=== PATIENT | female | born 1960 | race Asian ===

== ENCOUNTER 2019-11-17 20:50 | Emergency (ER) | payer OTHER ==
[2019-11-17] MEDS ORDERED: Amoxicillin/Clavulanate TAB* 875 MG PO ONE (21:28)
--- NOTE | 2019-11-17 21:28 | UC ---
[facility] HPI HPI Summary: 59-year-old woman has a chief complaint of being ill for 2 weeks. She's had a runny nose sinus congestion she has chest congestion has been feeling very fatigued. She is on methotrexate and hydroxychloroquine so she is potentially immunocompromised. She have a fever for couple of days and the beginning of the illness. Overall she's not improving. She would like to get tested for Covid. Telehealth PMH Previously Healthy: Yes - rheumatoid arthritis Endocrine/Hematology History: Denies: Hx Diabetes, Hx Thyroid Disease Cardiovascular History: Denies: Hx Hypertension Respiratory History: Denies: Hx Asthma, Hx Chronic Obstructive Pulmonary Disease (COPD) GI History: Denies: Hx Ulcer - Cancer History Hx Chemotherapy: No Hx Radiation Therapy: No - Family History Known Family History: Positive: Non-Contributory - Social History Substance Use Type: Reports: Prescribed [facility] ROS All Other Systems Reviewed And Are Negative: Yes Positive: Fever Positive: Nasal Discharge Positive: Cough Positive: Myalgia [facility] PE Telehealth Physical Exam: The physical exam and interview was undertaken by visual telemedicine. This limits the physical examination. [facility] Course/Dx Provider Diagnoses: Sinusitis [facility] Disposition Provider Recommendation for Treatment: Primary Care Physician Telehealth Visit: Patient Consented Verbally to Telehealth Visit Telehealth Patient Statement: The patient should understand that they are communicating with their provider via a secure communication platform and that all the same privacy and confidentiality rules apply. They will also be responsible for copayments or coinsurances that apply to any Telehealth visit. Patient Identifiers: 2 Patient Identifiers Verified for Telehealth Visit Telehealth Visit Start Time: 21:25 Telehealth Visit End Time: 21:45 Telehealth Provider Attestation: The above services were appropriate to provide in a Telehealth setting.
--- OUTSIDE RECORDS SUMMARY | 2019-11-17 21:37 | XMS REPORT | Summary of Care ---
:1960 Author Organization [facility] Address [address] [address] Care Team Providers Name Role Phone Mine Odell MD Primary Care Provider Reason for Visit Reason Comments Medication Check pt would like to discuss sleep and anxiety medications Encounter Details Date Type Department Care Team Description 10/21/2019 Office Visit [facility] Sanjiv Odell (Primary Dx); Practice Mine Dao MD Insomnia, unspecified type; [address] [facility] Seropositive rheumatoid arthritis (HCC); [place] [address] Memory changes [phone] Allergies Active Allergy Reactions Severity Noted Date Comments Bee Sting Anaphylaxis 01/12/2017 documented as of this encounter (statuses as of 10/21/2019) Medications Medication Sig Dispensed Refills Start End Status Date Date Melatonin 3 MG Oral Take 0.5 mg by 0 Active TabIndications: mouth. Indications: Insomnia Trouble Sleeping Diclofenac Sodium 1 % Place 1 Act onto 300 g 6 Active Transdermal skin FOUR TIMES 017 GelIndications: DAILY NEEDED Rheumatoid arthritis, (pain). Bilat. involving unspecified shoulders site, unspecified rheumatoid factor presence (HCC) Elastic Bandages & 1 Package by Does 2 Each 1 Active Supports (MEDICAL not apply route 017 COMPRESSION NEEDED (leg pain - PANTYHOSE) Does not varicose veins). apply MiscIndications: Varicose veins of both lower extremities with pain fluocinonide (LIDEX) Apply twice daily 15 g 0 03/19/2 Active 0.05 % Apply to rash on right 018 externally ankle for up to two OintmentIndications: weeks Dermatitis Prasterone (INTRAROSA Place into the 0 Active [facility]) vagina. Omeprazole delayed take 1 capsule by 90 Cap 1 Active rel cap 20 MG Oral mouth once daily 019 CAPSULE DELAYED BEFORE DINNER if RELEASE needed paroxetine (PAXIL) 10 Take 1 Tab by mouth 90 Tab 3 Active MG Oral DAILY. 019 TabIndications: ESTEPHANIE (generalized anxiety disorder) valacyclovir Take 1 Tab by mouth 14 Tab 3 Active (VALTREX) 500 MG Oral TWO TIMES DAILY 019 Tab NEEDED (cold sore). leucovorin Take 2 Tabs by 180 Tab 3 Active (WELLCOVORIN) 5 MG mouth DAILY. Daily 019 Oral Tab except the day that you take methotrexate EPINEPHrine 0.3 0.3 mg by Injection 1 Each 0 Active MG/0.3ML Injection route ONCE 019 Solution NEEDED (anaph) for Auto-injectorIndicati up to 1 dose. ons: Anaphylaxis Indications: Life-Threatening Hypersensitivity Reaction Tretinoin 0.05 % 0.2 g by Apply 20 g 0 Active Apply externally externally route 019 CreamIndications: EVERY BEDTIME. To Lentigines, Acne affected areas on vulgaris the face hydroxychloroquine Take 1 Tab by mouth 180 Tab 1 Active (PLAQUENIL) 200 MG DAILY. 019 Oral Tab atorvastatin take 1 tablet by 90 Tab 3 Active (LIPITOR) 10 MG Oral mouth once daily 019 TabIndications: Mixed hyperlipidemia ibuprofen (MOTRIN) TAKE 1 TABLET BY 100 Tab 0 Active 800 MG Oral Tab MOUTH WITH FOOD 019 EVERY 6 HOURS IF NEEDED Insulin 1 Syringe by Does 100 Each 0 Active Syringe-Needle U-100 not apply route 019 (ADVOCATE INSULIN EVERY 7 DAYS. SYRINGE) 31G X 5/16" 1 ML Does not apply Misc predniSONE Take 4 Tabs by 300 Tab 1 Active (DELTASONE) 5 MG Oral mouth DIRECTED. 019 Tab Take prednisone 20 mg reduce by 5 mg every 2 weeks cholecalciferol Take 1,000 Units by 0 Active (VITAMIN D) 1000 UNIT mouth DAILY. Oral Tab hydrocortisone Place 1 Appl per 1 Tube 0 Active (ANUSOL-HC,PROCTOSOL- rectum EVERY 019 HC) 2.5 % Rectal BEDTIME. Cream methotrexate sodium, ADMINISTER 1 ML 24 mL 0 Active PF, (MTX) 50 MG/2ML UNDER THE SKIN 020 Injection Solution EVERY 7 DAYS zolpidem (AMBIEN) 5 Take 1 Tab by mouth 30 Tab 5 Active MG Oral EVERY BEDTIME 020 TabIndications: NEEDED (sleep Insomnia, unspecified disturbance). Max type Daily Amount: 5 mg. mirtazapine (REMERON) Take 1 Tab by mouth 30 Tab 5 Active 7.5 MG Oral EVERY BEDTIME. 020 TabIndications: Insomnia, unspecified type, Anxiety trazodone (DESYREL) Take 1 Tab by mouth 90 Tab 0 10/21/ Discontinued 50 MG Oral EVERY BEDTIME. 019 2019 (Side Effect) TabIndications: Insomnia, unspecified type zolpidem (AMBIEN) 5 Take 1 Tab by mouth 30 Tab 1 10/21/ Discontinued MG Oral EVERY BEDTIME 019 2019 (Reorder) TabIndications: NEEDED (sleep Insomnia, unspecified disturbance). Max type Daily Amount: 5 mg. documented as of this encounter (statuses as of 10/21/2019) Active Problems Problem Noted Date Primary osteoarthritis involving multiple joints 04/15/2019 Insomnia 01/16/2019 Varicose veins of both lower extremities 01/16/2019 Mixed hyperlipidemia 01/16/2019 Seropositive rheumatoid arthritis 06/25/2017 Raynaud's disease without gangrene 06/25/2017 Neuropathy, peripheral, idiopathic 05/18/2017 Osteopenia 01/15/2017 Overview: DEXA 2016 Anxiety Overview: on paxil since depression documented as of this encounter (statuses as of 10/21/2019) Immunizations Name Administration Dates Next Due Hepatitis B Vaccine Adult 09/26/2011, 02/09/2011, 01/04/2011 Influenza (IM) Preservative Free 04/03/2019, 05/17/2018, 05/17/2018, 03/31/2017, 04/14/2016, 03/27/2015 PNEUMOCOCCAL POLYSACCHARIDE VACCINE 02/01/2014 TDAP Vaccine 11/18/2016, 09/18/2007 ZOSTER (ZOSTAVAX) VACCINE 08/05/2012 documented as of this encounter Social History Tobacco Use Types Packs/Day Years Used Date Never Smoker Smokeless Tobacco: Never Used Alcohol Use Drinks/Week oz/Week Comments Yes 1 Glasses of wine 2.0 1 Cans of beer Sex Assigned at Date Recorded Not on file documented as of this encounter Last Filed Vital Signs Vital Sign Reading Time Taken Comments Blood Pressure 110/70 10/21/2019 1:52 PM EST Pulse 66 10/21/2019 1:52 PM EST Temperature 36.2 10/21/2019 1:52 PM EST C (97.2 F) Respiratory Rate - - Oxygen Saturation 98% 10/21/2019 1:52 PM EST Inhaled Oxygen Concentration - - Weight 50.3 kg (111 lb) 10/21/2019 1:52 PM EST Height 162.6 cm (5' 4") 10/21/2019 1:52 PM EST Body Mass Index 19.05 10/21/2019 1:52 PM EST documented in this encounter Patient Instructions Patient InstructionsMine Odell MD - 10/21/2019 1:40 PM ESTStop trazodone Try Mirtazapine at bedtime 7.5 mg at bedtime. We can taper this up. In time, if this works, we can consider tapering Paxil. Ambien refilled. Warning not to drive or work within 8 hours discussed. Follow up in 3 monthsElectronically signed by Mine Odell MD at 2:25 PM EST documented in this encounter Progress Notes Mine Odell MD - 10/21/2019 1:40 PM EST Nursing Notes: Neisha Garcia LPN 10/21/2019 1:58 PM Signed Chief Complaint Patient presents with ? Medication Check pt would like to discuss sleep and anxiety medications This report was requested by: Neisha Garcia | Reference #: [id number] Mine Odell's Prescriptions Patient Name: Destin Hector Date: 1960 Address: [address] [place] [address] Sex: Female Rx Written Rx Dispensed Drug Quantity Days Supply Prescriber Name Payment Method Dispenser 05/28/2019 05/28/2019 alprazolam 0.25 mg tablet 5 5 Mine Odell MD Insurance [id number] 01/16/2019 05/16/2019 zolpidem tartrate 5 mg tablet 30 30 CannmarivelMine burrell MD Insurance [facility] 01/16/2019 04/16/2019 zolpidem tartrate 5 mg tablet 30 30 CannariaMine burrell MD Insurance [facility] 01/16/2019 03/17/2019 zolpidem tartrate 5 mg tablet 30 30 LinkariaMine burrell MD Insurance [facility] 01/16/2019 02/15/2019 zolpidem tartrate 5 mg tablet 30 30 CannariaindraMine MD Insurance [facility] 01/16/2019 01/16/2019 zolpidem tartrate 5 mg tablet 30 30 CannariaMien burrell MD Insurance [facility] Others' Prescriptions Patient Name: Destin Hector Date: 1960 Address: [address] [place] [address] Sex: Female Rx Written Rx Dispensed Drug Quantity Days Supply Prescriber Name Payment Method Dispenser 08/08/2019 09/09/2019 zolpidem tartrate 5 mg tablet 30 30 Sy, Layne Insurance [facility] #[id number] 08/08/2019 08/08/2019 zolpidem tartrate 5 mg tablet 30 30 Sy, Layne Insurance [id number] 11/26/2018 11/26/2018 zolpidem tartrate 5 mg tablet 30 30 Sy, Layne Snow Insurance [id number] * - Drugs marked with an asterisk are compound drugs. If the compound drug is made up of more than one controlled substance, then each controlled substance will be a separate row in the table. Professor Of Spanish: Dr Olivares Cell Plasterer: Dr Redding Neurologist: Dr Martínez. Chief Complaint: Destin Hector is a 59-y.o. female who presents for insomnia History of Present Illness/ROS: Patient presents for insomnia follow up, needs med refill. Despite Ambien, she is having problems sleeping and has anxiety. Geraldine Gutierrez [facility] gave her Trazodone 05/16/2019. It gives her odd dreams. Uses it on and off. In past tried Remeron--?hangover effect. She cannot sleep without Ambien. She is on paxil also. Since last visit she has seen Dr Martínez of neurology 09/02/2019 for her memory concerns. 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 He ordered Nuclear medicine brain PET imaging to rule out a neurodegenerative disease such as Alzheimer's. She tells me insurance denied this. She saw Dr Olivares, rheumatology for a follow up seropositive rheumatoid arthritis with osteoarthritis. Currently on Plaquenil 200 mg once day and methotrexate?subcutaneous 25?mg weekly with folinic acid 5 mg daily but not the day that she takes methotrexate. Review of Systems - General ROS: negative for - chills or fever Respiratory ROS: negative for - cough or shortness of breath Cardiovascular ROS: negative for - chest pain Neurological ROS: negative for - tremors, weakness, but has short term memory problems. At work sheis focused and fine. It is home that is a problem for her. GI Procedure on 07/15/2019 Component Date Value Ref Range Status ? GI Procedure 07/15/2019 Final Value:[facility] Patient Name: Destin Hector Procedure Date: 07/15/2019 7:52 AM Date of : 1960 Admit Type: Outpatient Age: 59 Room: A1 Gender: Female Note Status: Finalized Attending MD: AIDE ZAPIEN MD Procedure: Colonoscopy Indications: Screening for colorectal malignant neoplasm, Incidental - Diarrhea Providers: AIDE ZAPIEN MD, Kathya Rios RN, Maday Dixon (Meat [employer]er [employer] Slicer) Referring MD: MINE ODELL MD (Referring MD) Complications: No immediate complications. Medicines: Midazolam 5 mg IV Procedure: The patient's current medications and allergies were reviewed and recorded in the nurses notes. The patient was made aware of the risk of the procedure which can include: bleeding, infection, perforation, an adverse reaction to sedation, and a risk of missed lesions, among others. The patient appeared to understand. An opportunity for questions was provided, and an informed consent form was signed. The scope was passed under direct vision. Throughout the procedure, the patient's blood pressure, pulse EKG, and oxygen saturations were monitored continuously. The Colonoscope was introduced through the anus and advanced to the terminal ileum, with identificat ion of the appendiceal orifice and IC valve. The colonoscopy was performed without difficulty. The patient tolerated the procedure well. The quality of the bowel preparation was excellent. Requesting Provider: Findings: The perianal and digital rectal examinations were normal. The terminal ileum appeared normal. Internal hemorrhoids were found during retroflexion. The hemorrhoids were Grade I (internal hemorrhoids that do not prolapse). There is no endoscopic evidence of inflammation in the entire colon. Biopsies for histology were taken with a cold forceps from the entire colon for evaluation of microscopic colitis. Verification of patient identification for the specimen was done by the physician and nurse using the patient's name and medical record number. Estimated blood los s was minimal. Moderate Sedation: Moderate (conscious) sedation was administered by the endoscopy nurse and supervised by the endoscopist. The following parameters were monitored: oxygen saturation, heart rate, blood pressure, and response to care. Total physician intraservice time was 12 minutes. Impression: - The examined portion of the ileum was normal. - Internal hemorrhoids. Recommendation: - Discharge patient to home. - Resume previous diet. - Continue present medications. - Await pathology results. - Repeat colonoscopy in 10 years for screening purposes. Procedure Code(s): --- Professional --- 13936, Colonoscopy, flexible; with biopsy, s elvie or multiple G0500, Moderate sedation services provided by the same physician or other qualified health geriatric care manager performing a gastrointestinal endoscopic service that sedation supports, requiring the presence of an independent trained observer to assist in the monitoring of the patient's level of consciousness and physiological status; initial 15 minutes of intra-service time; patient age 5 years or older (additional time may be reported with 50959, as appropriate) Diagnosis Code(s): --- Professional --- Z12.11, Encounter for screening for malignant neoplasm of colon K64.0, First degree hemorrhoids CPT copyright 2017 [employer] [place] [employer]. All ri ghts reserved. The codes documented in this report are preliminary and upon bolt sawyer review may be revised to meet current compliance requirements. AIDE ZAPIEN MD 07/15/2019 8:57:53 AM This report has been signed electronically. Number of Addenda: 0 Note Initiated On: 07/15/2019 7:52 AM Estimated Blood Loss: Estimated blood loss: none. ? Case Report 07/15/2019 Final Value:Surgical Pathology Case: [id number] Authorizing Provider: Aide Zapien MD Collected: 2018 09:05 AM Ordering Location: [place] Received: 2018 11:41 AM Gastroenterology/Hepatolog y Pathologist: Placido Marshall, DO Specimen: colon biopsy, Random colon biopsies/colon/colonoscopy ? Clinical Information 07/15/2019 Final Value:hx diarrhea r/o microscopic colitis ? Pre-Op Diagnosis 07/15/2019 Final Value:Colon cancer screening ? Post-Op Diagnosis 07/15/2019 Final Value:Colon cancer screening ? FINAL DIAGNOSIS 07/15/2019 Final Value:This result contains rich text formatting which cannot be displayed here. ? Microscopic Description 07/15/2019 Final Value:This result contains rich text formatting which cannot be displayed here. ? Gross Description 07/15/2019 Final Value:This result contains rich text formatting which cannot be displayed here. ? Disclaimer 07/15/2019 Final Value:This result contains rich text formatting which cannot be displayed here. MR BRAIN WO CONT AND MRA BRAIN WO CONT Narrative: Procedure(s): MR BRAIN WO CONT AND MRA BRAIN WO CONT Date of service: 02/17/2019 3:35 PM Provided clinical information: 58 years, Female, "Headache, acute, norm neuro exam: with brain fog, hit her head October 2018" Technique A multiplanar, multisequence non-contrast MRI of the brain was performed. A dedicated intracranial MRA was performed using 3-D [id number] technique centered over the [place]. [id number] sequences of the [place] were acquired and reviewed Findings: MRI of the brain: The ventricles and sulci are within normal limits. There are scattered foci of signal abnormality in a bifrontal distribution suggestive of sequelae of prior headaches/migraines or early chronic small vessel ischemic disease. The valerio-white differentiation is maintained. There are no extra-axial or intra-axial fluid collections. There is no intracranial hemorrhage. The globes and intraorbital contents are within normal limits. There is no retrobulbar inflammation. The paranasal sinuses and mastoid air cells are clear. The major flow voids are patent. There is no restricted diffusion to suggest an acute infarct. There is no gradient echo susceptibility representing hemosiderin deposition. MRA of the brain: The lower cervical, petrous, supraclinoidal, and cavernous segments of the internal carotid arteries are intact without evidence of significant stenosis, aneurysm or vascular malformation. The right vertebral artery terminates into the right posterior inferior cerebellar artery. This represents a normal congenital variant. The anterior and posterior circulations are intact without MR findings of significant stenosis, aneurysm or vascular malformation. Impression: No significant stenosis, aneurysm or vascular malformation. No acute infarct. There are scattered foci of signal abnormality in a bifrontal distribution suggestive of sequelae of prior headaches/migraines or early chronic small vessel ischemic disease. Signed by Sandoval Jolley MD on 02/18/2019 2:31 AM Past Medical History: Diagnosis Date ? Anxiety on paxil since depression ? Basal cell carcinoma right posterior wrist 03-27-17 re-excised 06-13-17 ? Dermatitis ? GERD (gastroesophageal reflux disease) ? Hemorrhoid treated at [facility], ligated ? Hypercholesterolemia ? Insomnia ? Neuropathy, peripheral, idiopathic 05/18/2017 ? Osteopenia 01/11/2016 osteopenia, T-Score -1.1 and -1.4 femur, -.8 spine ? Postmenopausal ? Rotator cuff (capsule) sprain Past Surgical History: Procedure Laterality Date ? SECTION NEC ? COLONOSCOPY 2014 ? ENDOMETRIAL BIOPSY 02/2017 negative ? MO HEMORRHOIDECTOMY INTERNAL RUBBER BAND LIGATIONS Current Outpatient Medications: ? atorvastatin (LIPITOR) 10 MG Oral Tab, take 1 tablet by mouth once daily, Disp: 90 Tab, Rfl: 3 ? cholecalciferol (VITAMIN D) 1000 UNIT Oral Tab, Take 1,000 Units by mouth DAILY., Disp: , Rfl: ? Diclofenac Sodium 1 % Transdermal Gel, Place 1 Act onto skin FOUR TIMES DAILY NEEDED (pain). Bilat. shoulders, Disp: 300 g, Rfl: 6 ? Elastic Bandages & Supports (MEDICAL COMPRESSION PANTYHOSE) Does not apply Misc, 1 Package by Does not apply route NEEDED (leg pain - varicose veins)., Disp: 2 Each, Rfl: 1 ? EPINEPHrine 0.3 MG/0.3ML Injection Solution Auto-injector, 0.3 mg by Injection route ONCE NEEDED (anaph) for up to 1 dose. Indications: Life- Threatening Hypersensitivity Reaction, Disp: 1 Each, Rfl: 0 ? fluocinonide (LIDEX) 0.05 % Apply externally Ointment, Apply twice daily to rash on right ankle for up to two weeks, Disp: 15 g, Rfl: 0 ? hydrocortisone (ANUSOL-HC,PROCTOSOL-HC) 2.5 % Rectal Cream, Place 1 Appl per rectum EVERY BEDTIME., Disp: 1 Tube, Rfl: 0 ? hydroxychloroquine (PLAQUENIL) 200 MG Oral Tab, Take 1 Tab by mouth DAILY., Disp: 180 Tab, Rfl: 1 ? ibuprofen (MOTRIN) 800 MG Oral Tab, TAKE 1 TABLET BY MOUTH WITH FOOD EVERY 6 HOURS IF NEEDED, Disp: 100 Tab, Rfl: 0 ? Insulin Syringe-Needle U-100 (ADVOCATE INSULIN SYRINGE) 31G X 5/16" 1 ML Does not apply Misc, 1 Syringe by Does not apply route EVERY 7 DAYS., Disp: 100 Each, Rfl: 0 ? leucovorin (WELLCOVORIN) 5 MG Oral Tab, Take 2 Tabs by mouth DAILY. Daily except the day that you take methotrexate, Disp: 180 Tab, Rfl: 3 ? Melatonin 3 MG Oral Tab, Take 0.5 mg by mouth. Indications: Trouble Sleeping, Disp: , Rfl: ? methotrexate sodium, PF, (MTX) 50 MG/2ML Injection Solution, ADMINISTER 1 ML UNDER THE SKINEVERY 7 DAYS, Disp: 24 mL, Rfl: 0 ? mirtazapine (REMERON) 7.5 MG Oral Tab, Take 1 Tab by mouth EVERY BEDTIME., Disp: 30 Tab, Rfl: 5 ? Omeprazole delayed rel cap 20 MG Oral CAPSULE DELAYED RELEASE, take 1 capsule by mouth oncedaily BEFORE DINNER if needed, Disp: 90 Cap, Rfl: 1 ? paroxetine (PAXIL) 10 MG Oral Tab, Take 1 Tab by mouth DAILY., Disp: 90 Tab, Rfl: 3 ? Prasterone (INTRAROSA VA), Place into the vagina., Disp: , Rfl: ? predniSONE (DELTASONE) 5 MG Oral Tab, Take 4 Tabs by mouth DIRECTED. Take prednisone 20 mg reduce by 5 mg every 2 weeks, Disp: 300 Tab, Rfl : 1 ? Tretinoin 0.05 % Apply externally Cream, 0.2 g by Apply externally route EVERY BEDTIME. To affected areas on the face, Disp: 20 g, Rfl: 0 ? valacyclovir (VALTREX) 500 MG Oral Tab, Take 1 Tab by mouth TWO TIMES DAILY NEEDED (coldsore)., Disp: 14 Tab, Rfl: 3 ? zolpidem (AMBIEN) 5 MG Oral Tab, Take 1 Tab by mouth EVERY BEDTIME NEEDED (sleep disturbance). Max Daily Amount: 5 mg., Disp: 30 Tab, Rfl: 5 Allergies Allergen Reactions ? Bee Sting Anaphylaxis Social History Socioeconomic History ? Marital status: Spouse name: Not on file ? Number of children: Not on file ? Years of education: Not on file ? Highest education level: Not on file Occupational History ? Not on file Social Needs ? Financial resource strain: Not on file ? Food insecurity Worry: Not on file Inability: Not on file ? Transportation needs Medical: Not on file Non-medical: Not on file Tobacco Use ? Smoking status: Never Smoker ? Smokeless tobacco: Never Used Substance and Sexual Activity ? Alcohol use: Yes Alcohol/week: 2.0 standard drinks Types: 1 Glasses of wine, 1 Cans of beer per week ? Drug use: No ? Sexual activity: Yes Partners: Male Comment: menopausal Lifestyle ? Physical activity Days per week: Not on file Minutes per session: Not on file ? Stress: Not on file Relationships ? Social connections Talks on phone: Not on file Gets together: Not on file Attends holiness service: Not on file Active member of club or organization: Not on file Attends meetings of clubs or organizations: Not on file Relationship status: Not on file ? Intimate partner violence Fear of current or ex partner: Not on file Emotionally abused: Not on file Physically abused: Not on file Forced sexual activity: Not on file Other Topics Concern ? Back Care Not Asked ? Bike Helmet Not Asked ? Blood Transfusions Not Asked ? Caffeine Concern Not Asked ? Exercise Not Asked ? Hobby Hazards Not Asked ? International Travel Not Asked ? Service Not Asked ? Occupational Exposure Not Asked ? Seat Belt Not Asked ? Self-Exams Not Asked ? Sleep Concern Not Asked ? Special Diet Not Asked ? Stress Concern Not Asked ? 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 Olivares 05/30/17. Family History Problem Relation Age of Onset ? Psychiatry Mother schizophrenia ? High Cholesterol Father ? Hypertension Father ? No Known Problems Daughter ? No Known Problems Daughter ? Thyroid Sister ? High Cholesterol Brother ? Heart Brother 56 cardiac arrest, in a coma since, tachycardia, [place] ? High Cholesterol Brother PHYSICAL EXAMINATION: BP 110/70 | Pulse 66 | Temp 97.2 F (36.2 C) | Ht 5' 4" (1.626 m) | Wt 111 lb (50.3 kg) | SpO2 98% | BMI 19.05 kg/m Physical Examination: General appearance - alert, well appearing, and in no distress Mental status - alert, oriented to person, place, and time, normal mood, behavior, speech, dress, motor activity, and thought processes Eyes - pupils equal, sclera anicteric Neck - supple, no cervical or supraclavicular adenopathy, carotids upstroke normal bilaterally, no bruits, thyroid exam: thyroid is normal in size without nodules or tenderness, no neck masses palpated. Chest/Lungs - clear to auscultation, no wheezes, rales or rhonchi, symmetric air entry, good aeration Heart - normal rate, regular rhythm, normal S1, S2, no murmurs, rubs, clicks or gallops Abdomen - soft, non tender on palpation Neurological - alert, oriented, normal speech, no Tremor, normal gait Extremities - dorsalis pedis pulses normal, no pedal edema ASSESSMENT/PLAN: ICD-9-CM ICD-10-CM 1. Anxiety 300.00 F41.9 mirtazapine (REMERON) 7.5 MG Oral Tab 2. Insomnia, unspecified type 780.52 G47.00 zolpidem (AMBIEN) 5 MG Oral Tab mirtazapine (REMERON) 7.5 MG Oral Tab 3. Seropositive rheumatoid arthritis (HCC) 714.0 M05.9 4. Memory changes 780.[address] Martínez for memory concerns. I did warn her part of the treatment is stopping medications that can effect memory: Ambien, trazodone, Paxil. She would like to stop trazodone and try mirtazapine. She can taper this up and my hope is we can eventually stop Ambien. If it works well, perhaps Paxil also. She is doubtful she can stop Ambien. Patient Instructions Stop trazodone Try Mirtazapine at bedtime 7.5 mg at bedtime. We can taper this up. In time, if this works, we can consider tapering Paxil. Ambien refilled. Warning not to drive or work within 8 hours discussed. Follow up in 3 months Author: Mine Odell MD 10/21/2019 14:25 documented in this encounter Plan of Treatment Date Type Specialty Care Team Description 12/02/2019 Office Visit Rheumatology Araceli Olivares MD [address] [address] 12/04/2019 Office Visit Neurology Rolan Martínez MD [address] [address] 01/23/2020 Office Visit Family Practice Mine Odell MD [address] [place] [address] [phone] 03/02/2020 Office Visit Dermatology Steve Yuan PA-C [address] [address] Health Maintenance Due Date Last Done Comments ZOSTER IMMUNIZATION SERIES 09/30/2012 08/05/2012 (2 of 3) INFLUENZA VACCINE (#1) 2019 05/17/2018, 03/31/2017, 04/14/2016, Additional history exists MAMMOGRAM (SCREENING) 01/11/2020 01/10/2019, 01/02/2018, 11/25/2016 (Previously completed), Additional history exists DEPRESSION SCREENING 01/17/2020 01/16/2019 OSTEOPOROSIS SCREENING 01/30/2020 01/29/2018, 01/11/2016, 01/11/2016, Additional history exists PAP SMEAR 01/15/2021 01/15/2018, 12/25/2016 (Previously completed) LIPID DISORDER SCREENING 04/21/2024 04/21/2019, 03/17/2019, 02/07/2019, Additional history exists DTaP/Tdap/Td Vaccines (3 - 11/18/2026 11/18/2016, 09/18/2007 Tdap) Colonoscopy 07/15/2029 07/15/2019, 08/27/2014 (Previously completed), 07/13/2009 PNEUMOCOCCAL 0-64 YRS Aged Out 02/01/2014 No longer eligible based on patient's age to complete this topic HEPATITIS C SCREENING Completed 05/10/2017 HEPATITIS A IMMUNIZATION Aged Out No longer eligible SERIES based on patient's age to complete this topic HPV IMMUNIZATION SERIES Aged Out No longer eligible based on patient's age to complete this topic MENINGOCOCCAL VACCINE IMM Aged Out No longer eligible based on patient's age to complete this topic documented as of this encounter Results Not on filedocumented in this encounter Visit Diagnoses Diagnosis Insomnia, unspecified type Anxiety Anxiety state, unspecified Seropositive rheumatoid arthritis (HCC) Rheumatoid arthritis Memory changes Memory loss documented in this encounter Insurance Payer Benefit Plan / Subscriber ID Effective Dates Phone Address Type Group [facility] [employer]TA Psydex [id number] 2018-Present [facility] [employer] [facility] [id number] 2019-Present [employer] (Home) [place], [place] [phone] (Work) documented as of this encounter
--- OUTSIDE RECORDS SUMMARY | 2019-11-17 21:37 | XMS REPORT ---
:1960 Author Organization [facility] Address [address] [place] [address] Care Team Providers Name Role Phone Bayron Redding Unavailable Unavailable PROBLEMS Type Condition ICD9-CM [id number] Onset Condition SNOMED Code Code Code Dates Status Problem Postcoital and N93.0 Active 15337205 contact bleeding Problem Abnormal findings on R93.8 Active 991697898 diagnostic imaging of other specified body structures Problem Leiomyoma of uterus, D25.9 Active 26237037 unspecified Problem Dyspareunia not due F52.6 Active 49336194 to a substance or known physiological condition Problem Postmenopausal N95.2 Active 53915102 atrophic vaginitis Problem Mastodynia N64.4 Active 64017227 Problem Postmenopausal N95.0 Active 04170133 bleeding Problem Other specified N89.8 Active 35696120 noninflammatory disorders of vagina Problem Dermatitis, L30.9 Active 833506323 unspecified Problem Unspecified N94.10 Active 92504169 dyspareunia ALLERGIES No Information ENCOUNTERS Encounter Location Date Diagnosis [facility] [address] Jan, [place] [id number] [facility] [address] Jan, [place] [id number] [facility] [address] Sep, [place] [id number] [address] Aug, [facility] [address] [place] [id number] [facility] [address] Aug, [address] [place], [place] [id number] [place] [facility] [address] Aug, Anal spasm K59.[address] [place], Irritant contact [place] [id number] dermatitis, unspecified cause L24.9 [place] [facility] [address] Jul, [address] [place], [place] [id number] [place] [facility] [address] Jul, Noninflammatory disorder [address] [place], of vulva and perineum, [place] [id number] unspecified N90.9 [facility] [address] Mar, [place] [id number] [place] [address] Mar, Unspecified dyspareunia [address] [place], N94.10 and Anal spasm [place] [id number] K59.4 [facility] [address] December, Encounter for [facility], gynecological examination [place] [id number] (general) (routine) with abnormal findings Z01.411 ; Encounter for screening for malignant neoplasm of colon Z12.11 ; Unspecified dyspareunia N94.10 and Leiomyoma of uterus, unspecified D25.9 [facility] [address] December, [facility] N94.10 ; Leiomyoma of [place] [id number] uterus, unspecified D25.9 and Postcoital and contact bleeding N93.0 [facility] [address] Oct, O[place] [id number] [facility] 103 Sep, [place] [id number] [facility] 103 Sep, [facility], N94.10 [place] [id number] [facility] [address] Sep, Postcoital and contact OBGYN [facility], bleeding N93.0 [place] [id number] [place] [address] [place] [address] Sep, Dyspareunia not due to a [address] [place], substance or known [place] [id number] physiological condition F52.6 ; Unspecified dyspareunia N94.10 ; Postcoital and contact bleeding N93.0 and Mastodynia N64.4 [facility] [address] Sep, [place] [id number] [facility] [address] Sep, [place] [id number] [facility] 103 Aug, [facility] substance or known [place] [id number] physiological condition F52.6 ; Unspecified dyspareunia N94.10 and Postcoital and contact bleeding N93.0 [place] [facility] [address] [place] [address] Jul, Mastodynia N64[address] [place] [id number] [facility] [address] Jul, [place] [id number] [facility] [address] Jul, Dyspareunia not due to a OBGYN [facility], substance or known [place] [id number] physiological condition F52.6 ; Unspecified dyspareunia N94.10 and Postcoital and contact bleeding N93.0 [place] [facility] [address] [place] [address] [facility] Jul, Postcoital and contact [address] [place], bleeding N93.0 ; [place] [id number] Dyspareunia not due to a substance or known physiological condition F52.6 ; Unspecified dyspareunia N94.10 and Mastodynia N64.4 [facility] [address] Jun, [place] [id number] [facility] [address] [place] [address] [facility] Jun, [facility] and [facility] [address] [place] [address], bleeding N93.0 ; [place] [id number] Dyspareunia not due to a substance or known physiological condition F52.6 and Unspecified dyspareunia N94.10 [facility] [address] Jun, Postcoital and contact OBGYN [facility], bleeding N93.0 [place] [id number] [facility] [address] May, Postcoital and contact OBGYN [facility], bleeding N93.0 ; [place] [id number] Dyspareunia not due to a substance or known physiological condition F52.6 and Unspecified dyspareunia N94.10 [facility] [address] May, OBGYN [facility] [id number] [facility] [address] May, Postcoital and contact OBGYN [facility], bleeding N93.0 [place] [id number] [facility] [address] Apr, OBGYN [facility] [place] [id number] [facility] [address] Apr, Dermatitis, unspecified OBGYN [facility], L30.9 [place] [id number] [address] Mar, Noninflammatory disorder [facility] [address] [place] [address], of vulva and perineum, [place] [id number] unspecified N90.9 ; Postcoital and contact bleeding N93.0 and Leiomyoma of uterus, unspecified D25.[address] Feb, Postcoital and contact [facility] [address] [place] [address], bleeding N93.0 and [place] [id number] Leiomyoma of uterus, unspecified D25.9 [facility] [address] December, Encounter for [facility], gynecological examination [place] [id number] (general) (routine) without abnormal findings Z01.419 ; Postcoital and contact bleeding N93.0 ; Encounter for screening mammogram for malignant neoplasm of breast Z12.31 ; Leiomyoma of uterus, unspecified D25.9 ; Encounter for screening for malignant neoplasm of colon Z12.11 and Other specified noninflammatory disorders of vagina N89.8 [facility] [address] December, Postcoital and contact OBGYN [facility], bleeding N93.0 ; Abnormal [place] [id number] findings on diagnostic imaging of other specified body structures R93.8 ; Leiomyoma of uterus, unspecified D25.9 and Postmenopausal bleeding N95.[address] [facility] Jun, Postcoital and contact [address] [place], bleeding N93.0 ; Abnormal [place] [id number] findings on diagnostic imaging of other specified body structures R93.8 ; Leiomyoma of uterus, unspecified D25.9 and Postmenopausal bleeding N95.[address] [facility] Mar, Postcoital and contact [address] [place], bleeding N93.0 ; Abnormal [place] [id number] findings on diagnostic imaging of other specified body structures R93.8 ; Leiomyoma of uterus, unspecified D25.9 and Postmenopausal bleeding N95.0 [place] [address] Feb, Medical [place] [id number] [address] Feb, Postcoital and contact [address] [place], bleeding N93.0 ; Abnormal [place] [id number] findings on diagnostic imaging of other specified body structures R93.8 ; Leiomyoma of uterus, unspecified D25.9 and Postmenopausal bleeding N95.0 [facility] [address] Jan, OBGYN [place] [id number] [facility] [address] Jan, Postcoital and contact OBGYN [facility], bleeding N93.0 ; Abnormal [place] [id number] findings on diagnostic imaging of other specified body structures R93.8 ; Leiomyoma of uterus, unspecified D25.9 and Postmenopausal bleeding N95.[address] Jan, Postcoital and contact [address] [place], bleeding N93.0 ; Abnormal [place] [id number] findings on diagnostic imaging of other specified body structures R93.8 ; Leiomyoma of uterus, unspecified D25.9 and Postmenopausal bleeding N95.[address] Jan, Postcoital and contact [address] [place], bleeding N93.[address] [place] [id number] [facility] [address] Jan, Postcoital and contact OBGYN [facility], bleeding N93.0 ; Abnormal [place] [id number] findings on diagnostic imaging of other specified body structures R93.8 and Leiomyoma of uterus, unspecified D25.9 [facility] [address] Jan, Postcoital and contact OBGYN [facility], bleeding N93.[address] [place] [id number] [facility] [address] December, OBGYN [facility] [id number] [facility] [address] December, Postcoital and contact OBGYN [facility], bleeding N93.0 ; Abnormal [place] [id number] findings on diagnostic imaging of other specified body structures R93.8 and Leiomyoma of uterus, unspecified D25.[address] [facility] [address] December, Postcoital and contact OBGYN [facility], bleeding N93.0 [place] [id number] [address] December, Encounter for [address]BG[address] [place], gynecological examination [place] [id number] (general) (routine) without abnormal findings Z01.419 ; Encounter for screening mammogram for malignant neoplasm of breast Z12.31 ; Encounter for screening for malignant neoplasm of colon Z12.11 ; Other specified noninflammatory disorders of vagina N89.8 ; Postcoital and contact bleeding N93.0 and Postmenopausal atrophic vaginitis N95.2 IMMUNIZATIONS No Known Immunizations SOCIAL HISTORY Never Assessed REASON FOR REFERRAL FUNCTIONAL STATUS PLAN OF CARE VITAL SIGNS MEDICATIONS Medication Instructions Dosage Frequency Start End Duration Status Date Date Premarin Vaginal topically peas as Aug, day(s) Active 0.625 mg/g sized amt daily directed 2019 to the perineum Clobetasol applied 1 emory 12h Apr, day(s) Not-Rhys Propionate 0.05% topically 2 2017 ing times a day Vitamin D3 5000 intl orally once a 1 cap(s) 24h Active units day methotrexate 25 subcutaneously as Active mg/0.4 mL once a week directed Lipitor 10 mg orally once a 1 tab(s) 24h 30 day(s) Active day leucovorin 5 mg orally once a 2 tab(s) 24h Active day clobetasol topical applied 1 [facility] Aug, days Active 0.05% topically 2 2020 times a day x 3 weeks, then prn paroxetine 10 mg orally once a 1 tab(s) 24h Active day Prednisone Oral PRN 1 tab Active Ambien 5 mg orally once a 1 tab(s) Active day (at bedtime) omeprazole 20 mg 1 tab(s) Active melatonin orally PRN 1 tab(s) Active ibuprofen 200 mg orally PRN 1 tab(s) Active hydroxychloroquine orally QD 1 tab(s) 24h Active 200 mg Intrarosa 6.5 mg intravaginally 1 INS Sep, 84 days Active once a day (at 2020 bedtime) PROCEDURES No Known procedures RESULTS No Results REASON FOR VISIT Rx. refill request Insurance Providers [facility] Health Member Patient Patient Patient Patient Patient Subscriber Subscriber Subscriber Group Insurance Plan Plan Plan Plan ID Relationship Address Phone Name Date of ID Name Date of No Type Insurance Insurance Insurance Coverage to Subscriber Address Phone Name Dates [facility] [phone] [facility] [id number] [facility] [id number] [address] [place] [place] [address] MEDICAL (GENERAL) HISTORY Type Description Date Medical History anxiety Medical History high cholesterol Medical History insomnia Medical History rheumatoid arthritis Medical History osteo arthritis Medical History hemorrhoids Surgical History csection 1983 Surgical History hysteroscopy,D&C 03/13/17 Surgical History right wrist basal cell carcinoma removed 06/12 Surgical History Perineoplasty 08/05/18 Hospitalization History childbirth
--- OUTSIDE RECORDS SUMMARY | 2019-11-17 21:37 | XMS REPORT | Summary of Care ---
:1960 Author Organization [facility] Address [address] [facility] [place] [address] Care Team Providers Name Role Phone Manda Liu MD Primary Care Provider Reason for Visit Reason Comments Congestion head and chest congestion, started sunday night, tired, fever, productive cough, yellowish phlegm, headache, sore throat, muscle aches, joint pain Encounter Details Date Type Department Care Team Description 10/31/2019 Office Visit [place], [facility]AVAL [facility] [address] illness (Primary Dx) [address] [place] [address] [phone] Allergies Active Allergy Reactions Severity Noted Date Comments Bee Sting Anaphylaxis 01/12/2017 documented as of this encounter (statuses as of 10/31/2019) Medications Medication Sig Dispensed Refills Start End [...] (LIDEX) Apply twice daily 15 g 0 Active 0.05 % Apply to rash on [...] 5/16" 1 ML Does not apply Misc cholecalciferol Take 1,000 Units by 0 Active [...] BEDTIME. 020 TabIndications: Insomnia, unspecified type, Anxiety INTRAROSA 6.5 MG INSERT 1 0 Active Vaginal INSERT SUPPOSITORY 020 INTRAVAGINALLY ONCE A DAY AT BEDTIME oseltamivir (TAMIFLU) Take 1 Cap by mouth 10 Cap 0 Active 75 MG Oral Cap TWICE DAILY. 020 predniSONE Take 4 Tabs by 300 Tab 1 (DELTASONE) 5 MG Oral mouth DIRECTED. 019 2019 (Therapy Tab Take prednisone 20 Completed) mg reduce by 5 mg every 2 weeks documented as of this encounter (statuses as of 10/31/2019) Active Problems Problem Noted Date Primary osteoarthritis involving multiple joints 04/15/2019 Insomnia 01/16/2019 Varicose veins of both lower extremities 01/16/2019 Mixed hyperlipidemia 01/16/2019 Seropositive rheumatoid arthritis 06/25/2017 Raynaud's disease without gangrene 06/25/2017 Neuropathy, peripheral, idiopathic 05/18/2017 Osteopenia 01/15/2017 Overview: DEXA 2016 Anxiety Overview: on paxil since depression documented as of this encounter (statuses as of 10/31/2019) Immunizations Name Administration Dates Next Due Hepatitis [...] Sign Reading Time Taken Comments Blood Pressure 116/68 10/31/2019 9:14 AM EST Pulse 64 10/31/2019 9:14 AM EST Temperature 36 10/31/2019 9:14 AM EST C (96.8 F) Respiratory Rate 20 10/31/2019 9:14 AM EST Oxygen Saturation 99% 10/31/2019 9:14 AM EST Inhaled Oxygen Concentration - - Weight 51.3 kg (113 lb 3.2 oz) 10/31/2019 9:14 AM EST Height 162.6 cm (5' 4") 10/31/2019 9:14 AM EST Body Mass Index 19.43 10/31/2019 9:14 AM EST documented in this encounter Progress Notes Pattie Beyer FNP-C - 10/31/2019 9:00 AM EST PATIENT: Margarita Hector : 1960 DATE OF SERVICE: 10/31/2019 CHIEF COMPLAINT: Chief Complaint Patient presents with ? Congestion head and chest congestion, started sunday night, tired, fever, productive cough, yellowish phlegm, headache, sore throat, muscle aches, joint pain Subjective HISTORY OF PRESENT ILLNESS: Margarita Hector is a 59-y.o. female. PATIENT: Margarita Hector : 1960 DATE OF SERVICE: 10/31/2019 Subjective SUBJECTIVE: History was provided by the patient. Margarita Hector is a 59-y.o. female who presents with symptoms of influenzalike illness Symptoms include congestion, sore throat, fever 100.5, irritability, productive cough,burning eyes, muscle achiness ,headaches Onset of symptoms was 2 days ago, gradually worsening since that time. She also complains of productive cough with yellow sputum for 2 days. She is drinking plenty of fluids. Evaluation to date: none. Treatment to date: cough suppressants. Past Medical History: Diagnosis Date ? Anxiety on paxil since depression ? Basal cell carcinoma right posterior wrist 03-27-17 re-excised 10-18-17 ? Dermatitis ? GERD (gastroesophageal reflux disease) ? Hemorrhoid treated at [facility], ligated ? Hypercholesterolemia ? Insomnia ? Neuropathy, peripheral, idiopathic 05/18/2017 ? Osteopenia 01/11/2016 osteopenia, T-Score -1.1 and -1.4 femur, -.8 spine ? Postmenopausal ? Rotator cuff (capsule) sprain Family History Problem Relation Age of Onset ? Psychiatry Mother schizophrenia ? High Cholesterol Father ? Hypertension Father ? No Known Problems Daughter ? No Known Problems Daughter ? Thyroid Sister ? High Cholesterol Brother ? Heart Brother 56 cardiac arrest, in a coma since, tachycardia, [place] ? High Cholesterol Brother Current Outpatient Medications Medication Sig ? atorvastatin (LIPITOR) 10 MG Oral Tab take 1 tablet by mouth once daily ? cholecalciferol (VITAMIN D) 1000 UNIT Oral Tab Take 1,000 Units by mouth DAILY. ? Diclofenac Sodium 1 % Transdermal Gel Place 1 Act onto skin FOUR TIMES DAILY NEEDED (pain). Bilat. shoulders ? Elastic Bandages & Supports (MEDICAL COMPRESSION PANTYHOSE) Does not apply Misc 1 Package by Does not apply route NEEDED (leg pain - varicose veins). ? EPINEPHrine 0.3 MG/0.3ML Injection Solution Auto-injector 0.3 mg by Injection route ONCE NEEDED (anaph) for up to 1 dose. Indications: Life- Threatening Hypersensitivity Reaction ? fluocinonide (LIDEX) 0.05 % Apply externally Ointment Apply twice daily to rash on right ankle for up to two weeks ? hydrocortisone (ANUSOL-HC,PROCTOSOL-HC) 2.5 % Rectal Cream Place 1 Appl per rectum EVERY BEDTIME. ? hydroxychloroquine (PLAQUENIL) 200 MG Oral Tab Take 1 Tab by mouth DAILY. ? ibuprofen (MOTRIN) 800 MG Oral Tab TAKE 1 TABLET BY MOUTH WITH FOOD EVERY 6 HOURS IF NEEDED ? Insulin Syringe-Needle U-100 (ADVOCATE INSULIN SYRINGE) 31G X 16" 1 ML Does not apply Misc1 Syringe by Does not apply route EVERY 7 DAYS. ? INTRAROSA 6.5 MG Vaginal INSERT INSERT 1 SUPPOSITORY INTRAVAGINALLY ONCE A DAY AT BEDTIME ? leucovorin (WELLCOVORIN) 5 MG Oral Tab Take 2 Tabs by mouth DAILY. Daily except the day thatyou take methotrexate ? Melatonin 3 MG Oral Tab Take 0.5 mg by mouth. Indications: Trouble Sleeping ? methotrexate sodium, PF, (MTX) 50 MG/2ML Injection Solution ADMINISTER 1 ML UNDER THE SKIN EVERY 7 DAYS ? mirtazapine (REMERON) 7.5 MG Oral Tab Take 1 Tab by mouth EVERY BEDTIME. ? Omeprazole delayed rel cap 20 MG Oral CAPSULE DELAYED RELEASE take 1 capsule by mouth once daily BEFORE DINNER if needed ? oseltamivir (TAMIFLU) 75 MG Oral Cap Take 1 Cap by mouth TWICE DAILY. ? paroxetine (PAXIL) 10 MG Oral Tab Take 1 Tab by mouth DAILY. ? Prasterone (INTRAROSA VA) Place into the vagina. ? Tretinoin 0.05 % Apply externally Cream 0.2 g by Apply externally route EVERY BEDTIME. To affected areas on the face ? valacyclovir (VALTREX) 500 MG Oral Tab Take 1 Tab by mouth TWO TIMES DAILY NEEDED (cold sore). ? zolpidem (AMBIEN) 5 MG Oral Tab Take 1 Tab by mouth EVERY BEDTIME NEEDED (sleep disturbance). Max Daily Amount: 5 mg. No current facility-administered medications for this visit. Allergies Allergen Reactions ? 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 Olivares 05/30/17. REVIEW OF SYSTEMS: Review of Systems Constitutional: Positive for chills, fever and malaise/fatigue. HENT: Positive for congestion, sinus pain and sore throat. Negative for ear pain. Respiratory: Positive for cough and sputum production. Negative for shortness of breath. Cardiovascular: Negative for chest pain and palpitations. Gastrointestinal: Negative for abdominal pain, diarrhea, nausea and vomiting. Genitourinary: Negative for dysuria. Musculoskeletal: Positive for myalgias. Skin: Negative for rash. Neurological: Positive for headaches. Psychiatric/Behavioral: Negative for depression. Objective PHYSICAL EXAM: VITALS: BP 116/68 (BP Location: Right arm, Patient Position: Sitting) | Pulse 64 | Temp 96.8 F (36 C) (Tympanic) | Resp 20 | Ht 5' 4" (1.626 m) | Wt 113 lb 3.2 oz (51.3 kg) | SpO2 99% |BMI 19.43 kg/m Body mass index is 19.43 kg/m. Physical Exam Constitutional: Appearance: She is ill-appearing. HENT: Right Ear: Tympanic membrane normal. Left Ear: Tympanic membrane normal. Nose: Congestion present. Mouth/Throat: Mouth: Mucous membranes are moist. Pharynx: Posterior oropharyngeal erythema present. Eyes: Conjunctiva/sclera: Conjunctivae normal. Pupils: Pupils are equal, round, and reactive to light. Cardiovascular: Rate and Rhythm: Normal rate. Heart sounds: Normal heart sounds. No murmur. Pulmonary: Effort: Pulmonary effort is normal. Breath sounds: Normal breath sounds. Abdominal: General: Bowel sounds are normal. There is no distension. Palpations: There is no mass. Tenderness: There is no abdominal tenderness. Musculoskeletal: General: No swelling. Lymphadenopathy: Cervical: No cervical adenopathy. Skin: General: Skin is warm. Findings: No rash. Neurological: Mental Status: She is alert and oriented to person, place, and time. Gait: Gait normal. Psychiatric: Mood and Affect: Mood normal. ASSESSMENT / IMPRESSION: ICD-9-CM ICD-10-CM 1. Influenza-like illness 799.89 R69 FLU A/FLU B/RSV PCR ASSAY (TESTED AT [facility] ONLY) FLU A/FLU B/RSV PCR ASSAY (TESTED AT [facility] ONLY) Plan -You have a viral illness and treatment is mostly supportive care -Start tamiflu for treatment as prescribed to lessen the length of the illness -Increase fluids and rest -Take ibuprofen or acetaminophen for fever or pain -Take OTC cough med or prescription cough med. -Call or return to clinic prn if these symptoms worsen or fail to improve as anticipated. Author: DHAVAL Jameson 10/31/2019 09:43 documented in this encounter Plan of Treatment Date Type Specialty Care Team Description 12/02/2019 Office Visit Rheumatology Araceli Olivares MD [address] [place] [address] 12/04/2019 Office Visit Neurology Rolan Martínez MD [address] [place] [address] 01/23/2020 Office Visit Family Practice Manda Liu MD [address] [place] [address] [phone] 03/02/2020 Office Visit Dermatology Steve Yuan PA-C [address] [facility] [place] [address] Name Type Priority Associated Diagnoses Order Schedule FLU A/FLU B/RSV PCR Lab Routine Influenza-like illness 1 Occurrences starting ASSAY (TESTED AT 10/31/2019 until 04/28/2020 [facility] ONLY) Health Maintenance Due Date Last Done Comments ZOSTER IMMUNIZATION SERIES 09/30/2012 08/05/2012 (2 of 3) MAMMOGRAM (SCREENING) 01/11/2020 01/10/2019, 01/02/2018, 11/25/2016 (Previously [...] this topic HEPATITIS C SCREENING Completed 05/10/2017 INFLUENZA VACCINE Completed 04/03/2019, 05/17/2018, 03/31/2017, Additional history exists HEPATITIS A IMMUNIZATION Aged Out No longer [...] filedocumented in this encounter Visit Diagnoses Diagnosis Influenza-like illness Influenza with other respiratory manifestations documented in this encounter Insurance Payer Benefit Plan / Subscriber ID Effective Dates Phone Address Type Group [facility] [employer] [facility] [id number] 2018-Present [facility] [employer] [facility] [id number] 2019-Present [employer] (Home) [place], [place] [phone] (Work) documented as of this encounter
== END 2019-11-17 21:58 | disposition home or self-care (01) ==
LOC: UCEAST 20:50
DX: J32.9 Chronic sinusitis, unspecified (principal); R09.89 Other specified symptoms and signs involving the circulatory and respiratory systems; R53.83 Other fatigue; Z20.828 Contact with and (suspected) exposure to other viral communicable diseases
CPT/HCPCS: 99212; A9270-GY; G0463; Q3014; U0002